=== PATIENT | female | born 1965 | race Hispanic/Latino ===

== ENCOUNTER → 2024-11-03 | Day surgery (SDC) | payer OTHER ==
[~2024-11-03] MED LIST: BENICAR20 MG PO; FENTANYL CITRATE/PF 100MCG/2 ML INJ ONE; HYDRALAZINE HCL10 MG PO; HYOSCYAMINE SULFATE 0.5 MG/ML INJ ONE; LEVOTHYROXINE50 MCG PO; LIDOCAINE HCL 2% LOCAL INJ 5 ML SDV VIAL INJ ONE; METFORMIN HCL500 MG PO; METOPROLOL SUCC50 MG PO; MIDAZOLAM HCL 2 MG/2 ML VIAL ONE; MONTELUKAST SOD10 MG PO; OMEPRAZOLE40 MG PO; PANTOPRAZOLE SO40 MG PO; PROPOFOL IV EMULSION 10 MG/ML 20 ML VIAL ONE; [UNRECOGNIZED DRUG - OTHER] PO
[2024-11-03 08:29] VITALS: TEMP 97.5
[2024-11-03] MEDS: LACTATED RINGER'S 1,000 ML ONE (08:40)
[2024-11-03 08:50] VITALS: BP 147/84; PULSE 74; RESP 18; O2SAT 100
== END | disposition home or self-care (01) ==
LOC: OR 06:25
PROVIDERS: ATTEND Internal Medicine Gastroenterology
DX: D12.2 Benign neoplasm of ascending colon (principal); D12.3 Benign neoplasm of transverse colon; K25.9 Gastric ulcer, unspecified as acute or chronic, without hemorrhage or perforation; K29.70 Gastritis, unspecified, without bleeding; K52.9 Noninfective gastroenteritis and colitis, unspecified; K31.89 Other diseases of stomach and duodenum; K31.A12 Gastric intestinal metaplasia without dysplasia, involving the body (corpus); K59.00 Constipation, unspecified; K44.9 Diaphragmatic hernia without obstruction or gangrene; K21.9 Gastro-esophageal reflux disease without esophagitis; K57.30 Diverticulosis of large intestine without perforation or abscess without bleeding; K64.8 Other hemorrhoids; R63.4 Abnormal weight loss; I10 Essential (primary) hypertension; E78.5 Hyperlipidemia, unspecified; E11.9 Type 2 diabetes mellitus without complications; M06.9 Rheumatoid arthritis, unspecified; E03.9 Hypothyroidism, unspecified; F32.A Depression, unspecified; Z01.810 Encounter for preprocedural cardiovascular examination; Z79.84 Long term (current) use of oral hypoglycemic drugs; Z79.899 Other long term (current) drug therapy
CPT/HCPCS: 36415; 43239; 45384; 45385; 82948; 93005; J1980; J2003; J2704; J7121; 45378; J2250

== ENCOUNTER 2024-11-08 09:10 | Inpatient (IN) | payer OTHER ==
[2024-11-08] VITALS (12 sets, daily range): BP systolic 110–150; BP diastolic 52–70; PULSE 62–113; RESP 14–22; TEMP 97.4–98.2; O2SAT 92–100
[~2024-11-08] VITALS: Ht 160 cm; Wt 51.7 kg
[~2024-11-08 09:10] MED LIST changes: -FENTANYL CITRATE/PF 100MCG/2 ML INJ ONE; -HYDRALAZINE HCL10 MG PO; -HYOSCYAMINE SULFATE 0.5 MG/ML INJ ONE; -LIDOCAINE HCL 2% LOCAL INJ 5 ML SDV VIAL INJ ONE; -MIDAZOLAM HCL 2 MG/2 ML VIAL ONE; -PANTOPRAZOLE SO40 MG PO; -PROPOFOL IV EMULSION 10 MG/ML 20 ML VIAL ONE
[2024-11-08 09:47] LABS: BASOPHILS # (AUTO) 0.1 (0.0-0.1); BASOPHILS % 1.2 % (0.0-1.0); EOSINOPHILS # (AUTO) 0.1 (0.0-0.4); EOSINOPHILS % 1.2 % (0.0-6.0); HEMATOCRIT 31.3 % (34.2-44.1); HEMOGLOBIN 10.4 g/dL (12.0-16.0); LYMPHOCYTES # (AUTO) 2.8 (1.0-3.2); MEAN CORPUSCULAR HEMOGLOBIN 28.7 pg (28-32); MEAN CORPUSCULAR HGB CONC 33.2 g/dL (31-35); MEAN CORPUSCULAR VOLUME 86.2 fL (81-99); MONOCYTES # (AUTO) 0.5 (0.2-0.8); MONOCYTES % 8.6 % (4.4-11.3); NEUTROPHILS # (AUTO) 2.6 (2.1-6.9); NEUTROPHILS % 42.7 % (38.7-80.0); PLATELET COUNT 336 x10e3/uL (140-360); RED BLOOD COUNT 3.63 x10e6/uL (3.6-5.1); RED CELL DISTRIBUTION WIDTH 13.3 % (11.7-14.4); WHITE BLOOD COUNT 6.07 x10e3/uL (4.8-10.8)
[2024-11-08] MEDS: ONDANSETRON HCL INJ 2MG/ML 2ML 2 MG/ML VIAL IV STA (10:18)
[2024-11-08] MEDS: Morphine 4mg INJECTION 4 MG/ML INJ IV ONE (10:19)
[2024-11-08] MEDS: SODIUM CHLORIDE 0.9% 1000ML 1,000 ML IV ONE (10:19)
[2024-11-08 10:33] LABS: ALBUMIN 3.4 g/dL (3.5-5.0); ALBUMIN/GLOBULIN RATIO 1.1 (0.8-2.0); BILIRUBIN,TOTAL 0.2 mg/dL (0.2-1.2); CALCIUM 8.1 mg/dL (8.4-10.2); CREATININE, SERUM 0.9 mg/dL (0.57-1.11); TOTAL PROTEIN 6.5 g/dL (6.5-8.1)
[2024-11-08 10:46] LABS: INR 0.97; PROTHROMBIN TIME 13.5 seconds (11.9-14.5)
[2024-11-08 10:47] LABS: PARTIAL THROMBOPLASTIN TIME 26.5 seconds (23.8-35.5)
[2024-11-08] MEDS ORDERED: IOPAMIDOL 370 MG/ML 100 ML INFUS..BTL INJ ONE (11:06)
[2024-11-08] MEDS ORDERED: Morphine 2mg Syringe 2 MG/ML SYR IV PRN (12:30)
[2024-11-08] MEDS ORDERED: SODIUM CHLORIDE FLUSH 10 ML SYR INJ PRN (12:30)
[2024-11-08] MEDS ORDERED: ONDANSETRON HCL INJ 2MG/ML 2ML 2 MG/ML VIAL IV PRN (12:30)
[2024-11-08] MEDS: METOCLOPRAMIDE HCL 10 MG/2ML VIAL IV ONE (12:41)
[2024-11-08 15:11] LABS: HEMATOCRIT 25.6 % (34.2-44.1); HEMOGLOBIN 8.5 g/dL (12.0-16.0)
[2024-11-08] MEDS: D5NS/KCL 20MEQ 1,000 ML IV SCH (18:18)
[2024-11-08 18:34] LABS: HEMOGLOBIN 7.8 g/dL (12.0-16.0)
[2024-11-08] MEDS ORDERED: FUROSEMIDE INJ 10 MG/ML 2 ML VIAL IV PRN (19:15)
[2024-11-08] MEDS ORDERED: SODIUM CHLORIDE 0.9% 250ML 250 ML IV PRN (19:15)
[2024-11-08] MEDS: SODIUM CHLORIDE 0.9% 250ML 250 ML IV ONE (23:06)
[2024-11-09] VITALS (34 sets, daily range): BP systolic 119–195; BP diastolic 65–112; PULSE 68–114; RESP 12–22; TEMP 97.6–98.4; O2SAT 99–100
[2024-11-09] MEDS: PEG (High)/E-LYTE SOLN 4,000 ML BTL PO ONE (03:18)
[2024-11-09 06:51] LABS: BASOPHILS % 0.6 % (0.0-1.0); EOSINOPHILS % 0.4 % (0.0-6.0); HEMATOCRIT 24.9 % (34.2-44.1); HEMOGLOBIN 8.3 g/dL (12.0-16.0); LYMPHOCYTES # (AUTO) 2.7 (1.0-3.2); MEAN CORPUSCULAR HEMOGLOBIN 29.9 pg (28-32); MEAN CORPUSCULAR HGB CONC 33.3 g/dL (31-35); MEAN CORPUSCULAR VOLUME 89.6 fL (81-99); MONOCYTES # (AUTO) 0.6 (0.2-0.8); MONOCYTES % 8.8 % (4.4-11.3); NEUTROPHILS # (AUTO) 3.4 (2.1-6.9); NEUTROPHILS % 50.6 % (38.7-80.0); PLATELET COUNT 148 x10e3/uL (140-360); RED BLOOD COUNT 2.78 x10e6/uL (3.6-5.1); RED CELL DISTRIBUTION WIDTH 13.4 % (11.7-14.4); WHITE BLOOD COUNT 6.79 x10e3/uL (4.8-10.8)
[2024-11-09] MEDS: SODIUM CHLORIDE 0.9% 1000ML 2,000 ML ONE (07:06)
[2024-11-09 07:20] LABS: ALBUMIN 2.3 g/dL (3.5-5.0); ALBUMIN/GLOBULIN RATIO 1.5 (0.8-2.0); BILIRUBIN,TOTAL 0.5 mg/dL (0.2-1.2); CREATININE, SERUM 0.7 mg/dL (0.57-1.11); TOTAL PROTEIN 3.8 g/dL (6.5-8.1)
[2024-11-09 07:22] LABS: CALCIUM 6.8 mg/dL (8.4-10.2)
[2024-11-09] MEDS ORDERED: MELATONIN 3 MG TAB PO PRN (09:00)
[2024-11-09] MEDS ORDERED: ALBUTEROL/IPRATROPIUM 3 ML NEB NEB PRN (09:00)
[2024-11-09] MEDS: LEVOTHYROXINE SODIUM 50 MCG TAB PO SCH (09:17)
[2024-11-09] MEDS: MONTELUKAST SODIUM 10 MG TAB PO SCH (09:17)
[2024-11-09 09:36] LABS: CHOL/HDL RATIO 3.6 (3.0-3.6)
[2024-11-09 13:13] LABS: HEMATOCRIT 27.7 % (34.2-44.1); HEMOGLOBIN 9.7 g/dL (12.0-16.0)
[2024-11-09] MEDS: METOPROLOL TARTRATE INJ 1 MG/ML VIAL IV PRN (16:08)
[2024-11-09 19:04] LABS: HEMATOCRIT 28.8 % (34.2-44.1); HEMOGLOBIN 9.7 g/dL (12.0-16.0)
[2024-11-09] MEDS: METOPROLOL TARTRATE 25 MG TAB PO SCH (20:36)
[2024-11-09] MEDS: HYDRALAZINE HCL 10 MG TAB PO SCH (20:37)
[2024-11-10] VITALS (14 sets, daily range): BP systolic 143–189; BP diastolic 71–106; PULSE 62–92; RESP 11–22; TEMP 97.7–98.7; O2SAT 98–100
[2024-11-10 01:38] LABS: HEMATOCRIT 28.4 % (34.2-44.1); HEMOGLOBIN 9.7 g/dL (12.0-16.0)
[2024-11-10 05:48] LABS: BASOPHILS # (AUTO) 0.1 (0.0-0.1); EOSINOPHILS # (AUTO) 0.1 (0.0-0.4); EOSINOPHILS % 1.8 % (0.0-6.0); HEMATOCRIT 28.7 % (34.2-44.1); HEMOGLOBIN 9.9 g/dL (12.0-16.0); LYMPHOCYTES # (AUTO) 2.7 (1.0-3.2); LYMPHOCYTES % 38.1 % (18.0-39.1); MEAN CORPUSCULAR HEMOGLOBIN 29.7 pg (28-32); MEAN CORPUSCULAR HGB CONC 34.5 g/dL (31-35); MEAN CORPUSCULAR VOLUME 86.2 fL (81-99); MONOCYTES # (AUTO) 0.8 (0.2-0.8); MONOCYTES % 10.9 % (4.4-11.3); NEUTROPHILS # (AUTO) 3.4 (2.1-6.9); NEUTROPHILS % 47.8 % (38.7-80.0); PLATELET COUNT 151 x10e3/uL (140-360); RED BLOOD COUNT 3.33 x10e6/uL (3.6-5.1); RED CELL DISTRIBUTION WIDTH 14.4 % (11.7-14.4); WHITE BLOOD COUNT 7.06 x10e3/uL (4.8-10.8)
[2024-11-10] MEDS ORDERED: MIDAZOLAM HCL 2 MG/2 ML VIAL ONE ×2 (06:00→06:24)
[2024-11-10] MEDS ORDERED: LIDOCAINE HCL 2% LOCAL INJ 5 ML SDV VIAL INJ ONE ×2 (06:00→06:26)
[2024-11-10] MEDS ORDERED: PROPOFOL IV EMULSION 10 MG/ML 20 ML VIAL ONE ×2 (06:00→06:24)
[2024-11-10 06:08] LABS: ANION GAP 10.7 mmol/L (8-16); BLOOD UREA NITROGEN < 5 mg/dL (7-26); CALCIUM 7.8 mg/dL (8.4-10.2); CARBON DIOXIDE 24 mmol/L (22-29); CHLORIDE 106 mmol/L (98-107); CREATININE, SERUM 0.69 mg/dL (0.57-1.11); EST GLOMERULAR FILTRATION RATE 100 ML/MIN (>=60); GLUCOSE 91 mg/dL (74-118); POTASSIUM 3.7 mmol/L (3.5-5.1); SODIUM 137 mmol/L (136-145)
[2024-11-10 06:13] LABS: BUN/CREATININE RATIO 7 (6-25)
[2024-11-10] MEDS ORDERED: HYOSCYAMINE SULFATE 0.5 MG/ML INJ ONE (06:20)
[2024-11-10] MEDS ORDERED: EPINEPHRINE HCL 1:1000 1ML 1 MG/ML AMP ONE (06:22)
[2024-11-10] MEDS: ACETAMINOPHEN 325 MG TAB PO PRN (11:45)
[2024-11-10 14:06] LABS: HEMATOCRIT 27.8 % (34.2-44.1); HEMOGLOBIN 9.6 g/dL (12.0-16.0)
[2024-11-10 21:31] LABS: HEMATOCRIT 31.4 % (34.2-44.1); HEMOGLOBIN 10.9 g/dL (12.0-16.0)
[2024-11-11] VITALS (11 sets, daily range): BP systolic 94–158; BP diastolic 53–92; PULSE 71–95; RESP 17–21; TEMP 97.8–98.5; O2SAT 98–100
[2024-11-11 06:46] LABS: BASOPHILS # (AUTO) 0.1 (0.0-0.1); BASOPHILS % 0.9 % (0.0-1.0); EOSINOPHILS # (AUTO) 0.2 (0.0-0.4); EOSINOPHILS % 2.8 % (0.0-6.0); HEMATOCRIT 28.5 % (34.2-44.1); HEMOGLOBIN 9.8 g/dL (12.0-16.0); LYMPHOCYTES # (AUTO) 2.3 (1.0-3.2); LYMPHOCYTES % 33.7 % (18.0-39.1); MEAN CORPUSCULAR HEMOGLOBIN 29.8 pg (28-32); MEAN CORPUSCULAR HGB CONC 34.4 g/dL (31-35); MEAN CORPUSCULAR VOLUME 86.6 fL (81-99); MONOCYTES # (AUTO) 0.7 (0.2-0.8); MONOCYTES % 10.1 % (4.4-11.3); NEUTROPHILS # (AUTO) 3.6 (2.1-6.9); NEUTROPHILS % 52.2 % (38.7-80.0); PLATELET COUNT 183 x10e3/uL (140-360); RED BLOOD COUNT 3.29 x10e6/uL (3.6-5.1)
[2024-11-11 07:08] LABS: ANION GAP 10.6 mmol/L (8-16); CALCIUM 8.4 mg/dL (8.4-10.2); CREATININE, SERUM 0.82 mg/dL (0.57-1.11); POTASSIUM 3.6 mmol/L (3.5-5.1)
[2024-11-11] MEDS ORDERED: HYDRALAZINE HCL10 MG PO (07:24)
[2024-11-11] MEDS ORDERED: PANTOPRAZOLE SO40 MG PO (07:24)
[2024-11-11] MEDS: PANTOPRAZOLE SOD 40 MG TABEC PO SCH (08:20)
== END 2024-11-11 13:25 | disposition home or self-care (01) | DRG 920 ==
LOC: ER 09:15 → ERHOLD 12:21 → MED/SURG2 14:35 → OBSVTOIN 20:53 → ICU 20:57
PROVIDERS: ADMIT Internal Medicine; ATTEND Internal Medicine
PROC: 30233N1 Transfusion of Nonautologous Red Blood Cells into Peripheral Vein, Percutaneous Approach (ICD-10-PCS; 2024-11-08)
PROC: 06HY33Z Insertion of Infusion Device into Lower Vein, Percutaneous Approach (ICD-10-PCS; 2024-11-08)
PROC: 30233N1 Transfusion of Nonautologous Red Blood Cells into Peripheral Vein, Percutaneous Approach (ICD-10-PCS; 2024-11-09)
PROC: 0DBL8ZZ Excision of Transverse Colon, Via Natural or Artificial Opening Endoscopic (ICD-10-PCS; 2024-11-10)
PROC: 0W3P8ZZ Control Bleeding in Gastrointestinal Tract, Via Natural or Artificial Opening Endoscopic (ICD-10-PCS; principal; 2024-11-10 06:14)
DX: K91.840 Postprocedural hemorrhage of a digestive system organ or structure following a digestive system procedure (principal); D62 Acute posthemorrhagic anemia; E87.20 Acidosis, unspecified; K92.2 Gastrointestinal hemorrhage, unspecified; K63.5 Polyp of colon; K64.8 Other hemorrhoids; K57.30 Diverticulosis of large intestine without perforation or abscess without bleeding; E83.51 Hypocalcemia; K29.70 Gastritis, unspecified, without bleeding; E11.9 Type 2 diabetes mellitus without complications; Z79.84 Long term (current) use of oral hypoglycemic drugs; R53.81 Other malaise; E03.9 Hypothyroidism, unspecified; Y83.8 Other surgical procedures as the cause of abnormal reaction of the patient, or of later complication, without mention of misadventure at the time of the procedure; Y92.009 Unspecified place in unspecified non-institutional (private) residence as the place of occurrence of the external cause
CPT/HCPCS: 36415; 45385; 71045; 74177; 80048; 80053; 80061; 82948; 83036; 83690; 85014; 85018; 85025; 85610; 85730; 86850; 86900; 86920; 88305; 93005; 94799; 99252; 99284; J0171; J1980; J2003; J2250; J2270; J2405; J2470; J2765; J7030; J7050; P9016; Q9967